=== PATIENT | female | born 1985 | race Two or more races ===

== ENCOUNTER 2018-06-11 07:58 | Emergency (ER) | payer SELFPAY ==
[~2018-06-11] VITALS: Ht 165.1 cm; Wt 78.5 kg
[2018-06-11 08:18] VITALS: BP 136/81
[2018-06-11] MEDS ORDERED: methylPREDNISolone SOD SUCC 125 MG/2 ML VL ONE (08:20)
[2018-06-11] MEDS ORDERED: IPRATROPIUM BROM 0.5 MG/2.5ML INH SOL NEB ONE (08:30)
[2018-06-11] MEDS ORDERED: ALBUTEROL SULF 2.5 MG/0.5ML(0.5%) NEB SOLN NEB ONE (08:30)
[2018-06-11] MEDS ORDERED: methylPREDNISolone SOD SUCC 125 MG/2 ML VL IM ONE (08:30)
== END 2018-06-11 09:19 | disposition home or self-care (01) ==
LOC: ER 07:58
DX: J45.901 Unspecified asthma with (acute) exacerbation (principal)
CPT/HCPCS: 94640; 96372; 99283; J2930; J7611; J7644

== ENCOUNTER 2019-09-30 22:30 | Emergency (ER) | payer MEDICAID, OTHER ==
[~2019-09-30] VITALS: Ht 167.6 cm; Wt 99.8 kg
[2019-09-30 23:24] VITALS: BP 147/87
[2019-10-01] MEDS ORDERED: IBUPROFEN 800 MG TAB PO ONE (03:15)
[2019-10-01] MEDS ORDERED: ACETAMINOPHEN 500 MG TAB PO ONE (03:15)
== END 2019-10-01 03:30 | disposition home or self-care (01) ==
LOC: ER 22:31
DX: G89.29 Other chronic pain (principal); M51.16 Intervertebral disc disorders with radiculopathy, lumbar region; J45.909 Unspecified asthma, uncomplicated

== ENCOUNTER 2020-04-17 15:52 | Emergency (ER) | payer MEDICAID ==
[~2020-04-17] VITALS: Ht 167.6 cm; Wt 99.8 kg
[2020-04-17 15:53] VITALS: BP 150/87
== END 2020-04-17 19:56 | disposition left against medical advice (07) ==
LOC: ER 15:52
DX: R51.9 Headache, unspecified (principal); Z53.21 Procedure and treatment not carried out due to patient leaving prior to being seen by health care provider

== ENCOUNTER 2020-12-25 08:05 | Emergency (ER) | payer SELFPAY ==
[~2020-12-25] VITALS: Ht 167.6 cm; Wt 91.2 kg
[2020-12-25 08:09] VITALS: BP 143/89
== END 2020-12-25 09:59 | disposition home or self-care (01) ==
LOC: ER 08:05
DX: S80.02XA Contusion of left knee, initial encounter (principal); S60.211A Contusion of right wrist, initial encounter; Y04.2XXA Assault by strike against or bumped into by another person, initial encounter; Y93.89 Activity, other specified; Y92.89 Other specified places as the place of occurrence of the external cause; Y99.8 Other external cause status
CPT/HCPCS: 73110; 73562

== ENCOUNTER 2023-05-22 19:52 | Emergency (ER) | payer MEDICAID ==
[~2023-05-22] VITALS: Ht 165.1 cm; Wt 90.9 kg
[2023-05-22 20:01] VITALS: BP 146/100; PULSE 93; RESP 18; O2SAT 100
== END 2023-05-23 00:50 | disposition home or self-care (01) ==
LOC: ER 19:52 → EDBD 19:52 → ER 05-23 00:48
DX: F41.9 Anxiety disorder, unspecified (principal); J45.909 Unspecified asthma, uncomplicated
CPT/HCPCS: 93005

== ENCOUNTER 2025-01-28 18:22 | Emergency (ER) | payer MEDICAID ==
[~2025-01-28] VITALS: Ht 165.1 cm; Wt 95.0 kg
[2025-01-28 18:24] VITALS: BP 171/111; PULSE 93; RESP 18; TEMP 97.2; O2SAT 97
== END 2025-01-28 20:55 | disposition left against medical advice (07) ==
LOC: ER 18:25
DX: R51.9 Headache, unspecified (principal); Z79.899 Other long term (current) drug therapy